=== PATIENT | male | born 1950 | race Caucasian/White ===

== ENCOUNTER 2018-06-13 10:30 | Outpatient (REF) | payer MEDICARE, SELFPAY ==
[2018-06-13 22:00] LABS: BUN 11 mg/dL (7-18); Calcium 9.4 mg/dL (8.5-10.1); Chloride 100 mmol/L (98-107); Glucose 68 mg/dL (70-100); Potassium 4.8 mmol/L (3.5-5.1); Sodium 137 mmol/L (136-145)
== END 2018-06-13 10:50 ==
LOC: LBN 10:30
PROVIDERS: PCP Nurse Practitioner Family; Visit Provider Nurse Practitioner Family
DX: E87.5 Hyperkalemia (principal)
CPT/HCPCS: 80048

== ENCOUNTER 2018-07-09 14:25 | Outpatient (REF) | payer MEDICARE, SELFPAY ==
[2018-07-09 21:05] LABS: HCT 37.9 % (40.0-50.0); HGB 12.4 g/dL (13.5-17.5); Mean Corp. HGB Concentration 32.7 g/dL (32.0-36.0); Mean Corpuscular Hemoglobin 28.1 pg (27.0-33.0); Mean Corpuscular Volume 85.7 fL (80-95); Mean Platelet Volume 9.5 fL (8.0-11.0); Platelet Count 323 x1000/uL (130-400); RBC 4.42 m/cumm (4.50-6.00); RBC Distribution Width 13.5 % (11.8-14.1)
[2018-07-10 03:12] LABS: Absolute Neutrophil Count 7.87 k/cumm (1.2-6.7)
[2018-07-10 03:13] LABS: Absolute Lymphocyte Count 1.06 k/cumm (1.2-3.4); Absolute Monocyte Count 0.67 k/cumm (0.11-0.7); Diff Comment Manual Differential; RBC Morphology Normal
== END 2018-07-09 14:45 ==
LOC: NCHCN 14:25
PROVIDERS: PCP Nurse Practitioner Family; Visit Provider Registered Nurse
DX: D64.9 Anemia, unspecified (principal)
CPT/HCPCS: 85025

== ENCOUNTER 2018-08-21 11:08 | Outpatient (REF) | payer MEDICARE, SELFPAY ==
[2018-08-21 22:02] LABS: HCT 33.1 % (40.0-50.0); HGB 10.3 g/dL (13.5-17.5); Mean Corp. HGB Concentration 31.1 g/dL (32.0-36.0); Mean Corpuscular Hemoglobin 25.2 pg (27.0-33.0); Mean Corpuscular Volume 81.1 fL (80-95); Mean Platelet Volume 8.9 fL (8.0-11.0); Platelet Count 508 x1000/uL (130-400); RBC 4.08 m/cumm (4.50-6.00); RBC Distribution Width 13.5 % (11.8-14.1); White Blood Cell Count 12.25 k/cumm (4.4-10.8)
[2018-08-21 22:11] LABS: Iron 15 ug/dL (50-175); Total Iron Binding Capacity 310 ug/dL (250-450); Transferrin Sat 5 % (20-55)
[2018-08-21 22:29] LABS: Ferritin 21 ng/mL (8-388)
== END 2018-08-21 11:28 ==
LOC: NCHCN 11:08
PROVIDERS: PCP Nurse Practitioner Family; Visit Provider Registered Nurse
DX: D64.9 Anemia, unspecified (principal)
CPT/HCPCS: 85027; 82728; 83540; 83550

== ENCOUNTER 2018-08-27 10:03 | Outpatient (REF) | payer MEDICARE, SELFPAY ==
[2018-08-27 22:14] LABS: Abs Immature Grans 0.03 k/cumm (0.0-0.09); Absolute Eosinophil Count 0.11 k/cumm (0.0-0.7); Absolute Lymphocyte Count 1.61 k/cumm (1.2-3.4); Absolute Monocyte Count 0.86 k/cumm (0.11-0.7); Absolute Neutrophil Count 10.67 k/cumm (1.2-6.7); Basophils % 0.2; Eosinophils % 0.8; HCT 31.8 % (40.0-50.0); HGB 9.8 g/dL (13.5-17.5); Immature Grans % 0.2; Lymphocytes % 12.1; Mean Corp. HGB Concentration 30.8 g/dL (32.0-36.0); Mean Corpuscular Hemoglobin 24.8 pg (27.0-33.0); Mean Corpuscular Volume 80.5 fL (80-95); Mean Platelet Volume 8.8 fL (8.0-11.0); Monocytes % 6.5; Neutrophils % 80.2; Platelet Count 556 x1000/uL (130-400); RBC 3.95 m/cumm (4.50-6.00); RBC Distribution Width 13.7 % (11.8-14.1)
[2018-08-27 22:18] LABS: Absolute Basophil Count 0.03 k/cumm (0.0-0.2)
[2018-08-27 22:37] LABS: ALT 30 U/L (12-78); AST 14 U/L (15-37); Albumin 3.1 g/dL (3.4-5.0); Alkaline Phosphatase 82 U/L (46-116); Bilirubin, Direct 0.08 mg/dL (0.00-0.20); Bilirubin, Total 0.3 mg/dL (0.2-1.0); C-Reactive Protein 5.57 mg/dL (0.0-0.3); Total Protein 7.8 g/dL (6.4-8.2)
[2018-08-27 23:03] LABS: ESR 90 MM/HR (1-20)
== END 2018-08-27 10:23 ==
LOC: NCHCN 10:03
PROVIDERS: PCP Nurse Practitioner Family; Visit Provider Registered Nurse
DX: D64.9 Anemia, unspecified (principal); D72.829 Elevated white blood cell count, unspecified; E87.5 Hyperkalemia
CPT/HCPCS: 80076; 85652; 85025; 86140